=== PATIENT | female | born 1960 | race Caucasian/White ===

== ENCOUNTER 2024-03-13 02:45 | Inpatient (IN) | payer SELFPAY ==
[2024-03-13] VITALS (15 sets, daily range): BP systolic 120–174; BP diastolic 67–93; PULSE 66–92; TEMP 96.7–98.9
[~2024-03-13] VITALS: Ht 147.3 cm; Wt 58.4 kg
[~2024-03-13 02:45] MED LIST: NORCO 325 MG-51 TAB PO; OMEGA-3 1000 MG1 CAP PO; VITAMIN E 400 U4001 PO
[2024-03-13] MEDS ORDERED: Ondansetron 4 MG/2 ML VIAL IV ONE (03:10)
[2024-03-13] MEDS ORDERED: Morphine 4 MG/ML VIAL IV ONE (03:15)
[2024-03-13] MEDS ORDERED: NS 1,000 ML IV ONE (03:15)
[2024-03-13 03:19] LABS: BASO % 0.5 % (0.0-2.0); EOS % 0.1 % (0.0-4.0); GRAN # 7.2 K/mm3 (1.4-6.5); GRAN % 84.5 % (42.2-75.2); HEMOGLOBIN 13.7 g/dl (12.5-16.0); LYMPH # 1.1 K/mm3 (1.2-3.4); LYMPH % 12.7 % (20.0-51.0); MEAN CELL VOLUME 89 fl (80.0-100.0); MEAN CORPUSCULAR HEMOGLOBIN 30 pg (27-31); MEAN CORPUSCULAR HGB CONC 33 g/dl (33.0-37.0); MONO # 0.2 K/mm3 (0.1-0.6); PLATELET COUNT 320 K/mm3 (130-400); REDCELL DISTRIBUTION WIDTH-CV 12.7 % (11.5-14.5)
[2024-03-13 03:35] LABS: TROPONIN-I 0.015 ng/mL (0.00-0.033)
[2024-03-13 03:37] LABS: ALBUMIN 3.9 g/dL (3.4-4.8); BILIRUBIN,TOTAL 0.3 mg/dL (0.2-1.2); CALCIUM 9.3 mg/dL (8.4-10.2); CREATININE, serum 0.81 mg/dL (0.57-1.11); MAGNESIUM 1.7 mg/dL (1.6-2.6); POTASSIUM 3.2 mEq/L (3.5-4.5)
[2024-03-13] MEDS ORDERED: Iohexol 300 - 100 ML VIAL IV ONE (03:51)
[2024-03-13] MEDS ORDERED: NS 50 ML IV ONE (03:52)
[2024-03-13 03:58] LABS: URINE APPEARANCE CLEAR (CLEAR/HAZY); URINE BLOOD NEGATIVE (NEGATIVE); URINE COLOR YELLOW (YELLOW); URINE GLUCOSE 2+ (NEGATIVE); URINE KETONE 2+ (NEGATIVE); URINE NITRATE NEGATIVE (NEGATIVE); URINE PROTEIN(semi-quant) NEGATIVE (NEGATIVE); URINE UROBILINOGEN 0.2 E.U/dL (0.2-1.0)
[2024-03-13] MEDS ORDERED: HYDROmorphone 0.5 MG/0.5 ML SYRINGE IV ONE (04:00)
[2024-03-13 04:04] LABS: COLLECTION METHOD CLEAN CATCH
[2024-03-13] MEDS ORDERED: Ondansetron 4 MG/2 ML VIAL IV PRN ×3 (04:30→16:30)
[2024-03-13] MEDS ORDERED: Acetaminophen 325 MG TAB PO PRN (04:30)
[2024-03-13] MEDS ORDERED: Morphine 4 MG/ML VIAL IV PRN ×2 (04:45→12:45)
[2024-03-13] MEDS ORDERED: hydrALAZINE 20 MG/ML 1 ML VIAL IV PRN ×2 (04:45→14:45)
[2024-03-13] MEDS ORDERED: NS & 20 mEq KCl 1,000 ML IV SCH (04:45)
--- NOTE | 2024-03-13 05:40 | NUR ---
PATIENT ADMITED INTO ROOM 349 FROM ER WITH C/O ABD PAIN. A&O BUT DANISH SPEAKING ONLY, DAUGHTER AT BEDSIDE SPEAKS CROATIAN. ER REPORTS ISSUES WITH HTN WITH B/P IN THE 200'S SYSTOLIC AND 100'S DYASTOLIC, MEDS GIVEN IN ER, SEE MAR. ER ALSO GAVE IV MORPHINE & DILAUDID FOR PAIN WELL ZOFRAN. NPO FOR PENDING SURGERY. IV FLUIDS INFUSING VIA PUMP INTO LEFT AC IV. PATIENT CAME TO FLOOR IN STREET CLOTHES, CHANGED INTO GOWN. TELE MONITOR ON. HEAD TO TOE ASSESSMENT COMPLETE. ORIENTED TO ROOM. CALL LIGHT IN REACH.
[2024-03-13] MEDS ORDERED: TYLENOL 325MG325 MG PO (08:22)
[2024-03-13] MEDS ORDERED: *Potassium Replacement Protocol MC SCH (08:30)
[2024-03-13] MEDS ORDERED: Magnesium Sulfate 2 GM/50 ML IV SOLN IV ONE (09:00)
[2024-03-13] MEDS ORDERED: Pantoprazole 40 MG in NS 10 ML IV SCH (09:00)
--- NOTE | 2024-03-13 09:05 | NUR ---
SHIFT ASSESSMENT COMPLETE. VSS. PATIENT RESTING BED W/DAUGHTER AT BEDSIDE. ALL MORNING MEDS GIVEN ORDERED. PATIENT HAS NO REQUEST AT THIS TIME. CALL LGHT IN REACH
--- NOTE | 2024-03-13 10:26 | NUR ---
D: Box Sealing Machine Operator stopped by room on rounds. A: Pt was resting and content with family in the room. Pt has no needs right now. P: Box Sealing Machine Operator informed pt that if she needed anything from the griddle cook area to let her nurse know. Box Sealing Machine Operator will follow up as needed.
[2024-03-13] MEDS ORDERED: Potassium Chloride 100 ML IV SCH ×3 (11:00→19:00)
[2024-03-13] MEDS ORDERED: LR 1,000 ML IV SCH (12:00)
--- NOTE | 2024-03-13 12:17 | NUR ---
spice room worker met with pt and two females in the room. Pt was soundly sleeping and did not arouse. Daughter, Zainab Hua [phone] was present and answered questions. She declined a lapel padder for her or her mother and reports "no...I have been here so we don't need one." She states pt live with her in [place]. She does not have a PCP as she is usually healthy and does obtain medications from [facility] with difficulties. She reports that pt's four children all assist and manage this for her. Daughter states pt is usually very independent and uses no DME. She does not have a DPOA-HC and provided her four children as: Zainab, Alyssa Brown, Pablito Brown, and Demarcus Brown. SW inquired about pt insurance status and if she was aware of Medicare for her mother. Daughter reports she is not able to obtain this due to her immigration status. She reports being aware of the [facility] for any follow-up that is reccomended. She declined further information on this. Daughter has no concerns for pt's mobility. JD informed financial processing clerkMilton of pt being self pay. Discharge Plan: home
[2024-03-13] MEDS ORDERED: fentaNYL 50 MCG/ML 2 ML VIAL ONE ×2 (14:24→16:37)
[2024-03-13] MEDS ORDERED: Rocuronium 50 MG/5 ML Multi-Dose VIAL ONE (14:24)
[2024-03-13] MEDS ORDERED: Lidocaine PF 2% (20 MG/ML) 5 ML VIAL ONE (14:24)
[2024-03-13] MEDS ORDERED: Ondansetron 4 MG/2 ML VIAL ONE (14:31)
[2024-03-13] MEDS ORDERED: Ketorolac 30 MG/ML VIAL ONE (14:31)
[2024-03-13] MEDS ORDERED: dexAMETHasone 10 MG/ML VIAL ONE (14:31)
[2024-03-13] MEDS ORDERED: droPERidol 2.5 MG/ML 2 ML VIAL IV PRN (14:45)
[2024-03-13] MEDS ORDERED: Meperidine 50 MG/ML 1 ML VIAL IV PRN (14:45)
[2024-03-13] MEDS ORDERED: HYDROmorphone 1 MG/1 ML SYRINGE [PACU/SDC ONLY] IV PRN (14:45)
[2024-03-13] MEDS ORDERED: fentaNYL 50 MCG/ML 1 ML SYRINGE/VIAL [PACU/SDC ONLY] IV PRN (14:45)
[2024-03-13] MEDS ORDERED: Indocyanine Green 6.25 MG in Water For Injection,Sterile 1.25 ML IV SCH (15:30)
--- NOTE | 2024-03-13 15:30 | NUR ---
PAIENT OFF FLOOR DOWN TO OR.
[2024-03-13] MEDS ORDERED: Glycopyrrolate 0.2 MG/ML 1 ML VIAL ONE (16:27)
[2024-03-13] MEDS ORDERED: Naloxone 0.4 MG/ML VIAL IV PRN (16:30)
[2024-03-13] MEDS ORDERED: oxyCODONE 5 MG TAB PO PRN (16:30)
[2024-03-13] MEDS ORDERED: Ibuprofen 600 MG TAB PO PRN (16:30)
[2024-03-13] MEDS ORDERED: Acetaminophen 500 MG TAB PO SCH (17:00)
[2024-03-13] MEDS ORDERED: LR 1,000 ML IV ONE (17:26)
--- NOTE | 2024-03-13 18:27 | NUR ---
PATIENT ARRIVED TO FLOOR AT 1810. VSS. 4 LAP SITE W/BANDAIDS CDI. PATIENT REPORTING NO PAIN AT THIS TIME. FAMILY AT BEDSIDE AND PATIENT AWAITING A CLEARS TRAY. CALL LIGHT IN REACH.
--- NOTE | 2024-03-13 20:42 | NUR ---
Patient assessed at this time, see shift assessment, ITALIAN speaking only, VSS, denies pain or discomfort, 3 lap sites band aid clean dry intact, with IV infusing well on left antecubital, denies further needs, call light and personal items within reach, will continue to monitor.
[2024-03-14] VITALS (8 sets, daily range): BP systolic 110–162; BP diastolic 56–79; PULSE 64–73; TEMP 97.8–98.8
--- NOTE | 2024-03-14 00:55 | NUR ---
Patient up to the bathroom at this time, felt light headed, vitals stable, will continue to monitor.
--- NOTE | 2024-03-14 06:27 | NUR ---
Patient ambulated the hallway at this time, denies further needs.
[2024-03-14 06:32] LABS: EOS % 0.1 % (0.0-4.0); GRAN # 5.8 K/mm3 (1.4-6.5); GRAN % 78.9 % (42.2-75.2); HEMOGLOBIN 11.8 g/dl (12.5-16.0); LYMPH # 1.1 K/mm3 (1.2-3.4); LYMPH % 15.5 % (20.0-51.0); MEAN CELL VOLUME 90 fl (80.0-100.0); MEAN CORPUSCULAR HEMOGLOBIN 31 pg (27-31); MEAN CORPUSCULAR HGB CONC 34 g/dl (33.0-37.0); MEAN PLATELET VOLUME 11.5 fl (7.4-10.4); MONO # 0.4 K/mm3 (0.1-0.6); MONO % 5.2 % (1.7-9.3); PLATELET COUNT 292 K/mm3 (130-400); RED BLOOD COUNT 3.87 M/mm3 (4.10-5.30); REDCELL DISTRIBUTION WIDTH-CV 13.2 % (11.5-14.5)
[2024-03-14 06:43] LABS: HEMATOCRIT 34.7 % (37.0-47.0)
[2024-03-14 06:47] LABS: CALCIUM 8.6 mg/dL (8.4-10.2); CREATININE, serum 0.63 mg/dL (0.57-1.11); POTASSIUM 4.6 mEq/L (3.5-4.5)
--- NOTE | 2024-03-14 08:30 | NUR ---
SHIFT ASSESSMENT COMPLETE. VSS. PATIENT RESTING IN BED W/ SON AT BEDSIDE. ALL MORNING MEDS GIVEN ORDERED. PATIENT COMPLAINS OF NO PAIN AND HAS PASSED GAS, NO BM YET. PATIENT TOLERATED LOW FIBER DIET THIS AM AND HAS RECEIVED DISCHARGE ORDERS AND STATES SHE FEELS READY TO GO HOME. DISCHARGE ORDERS BEING PROCESSED AND WILL DISCHARGE PATIENT HOME.
== END 2024-03-14 11:41 | disposition home or self-care (01) | DRG 418 ==
LOC: COL.ER 02:45 → EDSEX 02:45 → SURG 04:26
PROVIDERS: Emergency Medicine; Physician Assistant; Surgery; ADMIT Internal Medicine
PROC: 8E0W4CZ Robotic Assisted Procedure of Trunk Region, Percutaneous Endoscopic Approach (ICD-10-PCS; 2024-03-13)
PROC: 0FT44ZZ Resection of Gallbladder, Percutaneous Endoscopic Approach (ICD-10-PCS; principal; 2024-03-13 17:00)
DX: K80.00 Calculus of gallbladder with acute cholecystitis without obstruction (principal); K82.1 Hydrops of gallbladder; E87.6 Hypokalemia; I16.0 Hypertensive urgency; I10 Essential (primary) hypertension; K76.0 Fatty (change of) liver, not elsewhere classified
CPT/HCPCS: J0360; J1100; J1170; J1885; J1920; J2270; J2405; J2470; J2543; J2704; J3010; J3475; J3480; J7030; J7120; Q9967